=== PATIENT | male | born 1970 | race Caucasian/White ===

== ENCOUNTER 2021-01-14 07:26 | Outpatient (REF) | payer BC, SELFPAY ==
[2021-01-14 07:59] LABS: COVID-19 Test Positive (Negative)
== END 2021-01-14 07:27 | disposition home or self-care (01) ==
LOC: HO.LAB 07:26
PROVIDERS: Visit Provider Internal Medicine
DX: Z20.822 Contact with and (suspected) exposure to COVID-19 (principal)
CPT/HCPCS: 36415; 87635; C9803

== ENCOUNTER 2021-03-19 12:08 | Outpatient (REF) | payer BC, SELFPAY | END 2021-03-19 12:09 | disposition home or self-care (01) | LOC: HO.HOSX 12:08 | PROVIDERS: Visit Provider Physician Assistant | DX: Z13.89 Encounter for screening for other disorder (principal) ==